=== PATIENT | male | born 1960 | race Caucasian/White ===

== ENCOUNTER 2018-06-26 09:01 | Emergency (ER) | payer OTHER ==
[2018-06-26] MEDS: BENOXINATE/FLUORESCEIN DROPS LEFT EYE (10:15)
== END 2018-06-26 10:17 | disposition home or self-care (01) ==
LOC: FTE 09:01
DX: T50.991A Poisoning by other drugs, medicaments and biological substances, accidental (unintentional), initial encounter (principal); Z85.51 Personal history of malignant neoplasm of bladder
CPT/HCPCS: 99283; Z7502